=== PATIENT | female | born 1965 | race Caucasian/White ===

== ENCOUNTER 2025-03-08 13:07 | Outpatient (AMB) | payer MEDICARE, MEDICAID, SELFPAY ==
--- NOTE | 2025-03-08 13:09 | MHC.OFFVIS ---
Vital Signs 03/08/25 13:10 Height 5 ft 4 in Weight 216 lb BMI 37.1 BP 124/78 Blood Pressure Location Lt brachial Position Sitting Respiration 16 Pulse 88 Pulse Source Pulse Oximeter Pulse Oximetry (%) 97 Oxygen Delivery Method Nasal Cannula Oxygen Flow Rate 3 Intake Visit Reasons: Chronic pain syndrome Bell Attendant Required: No Allergies Penicillins (PCN) Allergy (Intermediate, Verified 03/08/25 13:12) RASH tetracycline (TETRACYCLINE) Allergy (Intermediate, Verified 03/08/25 13:12) RASH Medication List - Last Reconciled 03/08/25 by Cass Wyatt LPN albuterol sulfate 2.5 mg inhalation Q6H amiodarone 200 mg PO DAILY apixaban 5 mg PO BID atorvastatin (Lipitor) 40 mg PO BEDTIME buprenorphine-naloxone 2-0.5 mg (Suboxone) 1 film buccal DAILY dapagliflozin propanediol 10 mg PO DAILY dupilumab (Dupixent) 300 mg subcut Q2W epinephrine (EpiPen) 0.3 mg IM Q10M PRN fluoxetine 20 mg PO DAILY xhlylnncusg-exulgjrnf-dsufqnab 200-62.5-25 mcg (Trelegy Ellipta) 1 inh inhalation DAILY ipratropium-albuterol 0.5 mg-3 mg(2.5 mg base)/3 mL 3 mL inhalation Q6-8H PRN levalbuterol HCl 0.63 mg inhalation TID metoprolol tartrate 50 mg PO DAILY omeprazole 20 mg PO DAILY pregabalin 100 mg PO BID quetiapine 25 mg PO BEDTIME semaglutide 2 mg subcut QWEEK torsemide 40 mg PO DAILY HPI HPI Chronic pain syndrome: Details: History of Present Illness The patient is a 59-year-old female presenting with chronic pain management and evaluation of medication side effects. She has a history of failback syndrome and chronic pain syndrome, which have been persistent issues. The patient has undergone multiple back surgeries, the most recent being a few months ago, where fractures were treated with plaster and nerve decompression was performed. Despite these interventions, she continues to experience significant pain, described as burning and stabbing in nature, affecting her mobility. The patient has a history of substance use disorder, currently in remission, and is maintained on Suboxone 2/0.5 mg. She reports adverse reactions to Suboxone, including leg swelling and dry heaves, leading her to discontinue the medication after one week. Her medication regimen also includes pregabalin 100 mg twice daily, managed by her primary care provider. The patient has a history of long-term Percocet use, which was discontinued due to diminishing efficacy and misuse concerns. She has been diagnosed with Chronic Obstructive Pulmonary Disease (COPD) and is on supplemental oxygen at 3 liters due to this condition. Additionally, she has a history of congestive heart failure and atrial fibrillation, for which she underwent an ablation procedure in December. Pain Description - Onset: Chronic pain following multiple back surgeries - Quality: Burning and stabbing pain - Location: Back - Exacerbating factors: Mobility and walking - Relieving factors: None effectively identified Physical Exam - Appears afebrile. - Alert and oriented. - Mood and affect appropriate. - Follows and participates in conversation appropriately. - Respiratory effort is unlabored. - Sitting comfortably in wheelchair, with supplemental oxygen. Pain Management - Affect: Pain significantly impacts mobility and daily activities - Analgesia: Currently on pregabalin 100 mg twice daily; Suboxone discontinued due to adverse effects - Adverse Effects: Swelling of legs and dry heaves from Suboxone - Activities of Daily Living: Pain limits walking and mobility - Aberrant Drug Related Behaviors: History of Percocet misuse [facility] Medical History (Updated 02/04/25 @ 10:06 by Cass Wyatt LPN) Type 2 diabetes mellitus Substance abuse Rosacea Right knee DJD Patellofemoral disorder of right knee Paroxysmal atrial fibrillation Osteopenia of femoral neck Osteoarthritis, hand Osteoarthritis of glenohumeral joints, bilateral Obesity with alveolar hypoventilation Migraine Major depressive disorder Lumbar degenerative disc disease superintendent terminal systemic steroid user senior living prescription opiate use Insomnia Hyperlipidemia Generalized anxiety disorder 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 Chronic pain syndrome Chronic hypoxic respiratory failure Chronic antibiotic suppression Central sleep apnea Anticoagulant long-term use Allergic rhinitis Advanced COPD Physical Exam Vital Signs: Last Vital Signs Pulse 88 03/08/25 13:10 Resp 16 03/08/25 13:10 BP 124/78 03/08/25 13:10 Pulse Ox 97 03/08/25 13:10 Oxygen Delivery Method Nasal Cannula 03/08/25 13:10 Oxygen Flow Rate 3 03/08/25 13:10 BMI result Body Mass Index 37.1 Assessment & Plan Assessment & Plan (1) senior living prescription opiate use: Code(s): Z79.891 - senior living (current) use of opiate analgesic Category: Medical (2) Chronic pain syndrome: Code(s): G89.4 - Chronic pain syndrome Category: Medical Plan Patient was informed and verbally consented to the use of an ambient scribe for clinic note documentation during this visit. 1. Failed back Syndrome - Consideration of spinal stimulator as a treatment option, though we are hesitant due to complexity and comorbidities. 2. Chronic Pain Syndrome - Discussion of interventional pain management options, including injections, though patient has had limited success previously. 3. Substance Use Disorder In Remission - Continued monitoring and management with Suboxone, though currently discontinued due to adverse effects. 4. Chronic Obstructive Pulmonary Disease (Copd) - Continued use of supplemental oxygen at 3 liters as needed. 5. Congestive Heart Failure - Monitoring of symptoms and coordination with cardiology for management. Recommended evaluation of LE swelling. 6. Atrial Fibrillation - Post-ablation follow-up and continued anticoagulation therapy with Eliquis. Discussion Notes I discussed with the patient the potential use of a spinal stimulator for her failback syndrome, explaining the risks and benefits, but she expressed hesitation due to her multiple comorbidities. We also reviewed her current pain management regimen, including the adverse effects she experienced with Suboxone, and the possibility of interventional pain management techniques. I advised her to follow up with her knockout machine operator regarding her heart failure and atrial fibrillation management, especially considering her recent ablation. Patient Instructions - Follow up with your knockout machine operator for heart failure and atrial fibrillation management. - Consider visiting the hospital if leg swelling and dry heaves persist. - Discuss with your primary care provider about alternative pain management options. Coding Level of Care Code New Pt Level 4 (78163) Diagnoses superintendent terminal prescription opiate use Z79.891 Chronic pain syndrome G89.4
[2025-03-08 13:10] VITALS: BP 124/78; PULSE 88; RESP 16; O2SAT 97; BMI 37.1
== END 2025-03-08 13:45 | disposition home or self-care (01) ==
LOC: HO.PMC 13:07
PROVIDERS: PCP Nurse Practitioner Family; Visit Provider Internal Medicine
DX: G89.4 Chronic pain syndrome (principal); Z79.891 Long term (current) use of opiate analgesic
CPT/HCPCS: 99204

== ENCOUNTER → 2025-03-08 13:07 | Outpatient (BNVA) | payer MEDICARE, MEDICAID, SELFPAY | PROVIDERS: PCP Nurse Practitioner Family; Visit Provider Internal Medicine | DX: G89.4 Chronic pain syndrome (principal); J44.9 Chronic obstructive pulmonary disease, unspecified; Z99.81 Dependence on supplemental oxygen; I50.9 Heart failure, unspecified; I48.0 Paroxysmal atrial fibrillation; F19.11 Other psychoactive substance abuse, in remission; Z79.01 Long term (current) use of anticoagulants; Z98.890 Other specified postprocedural states; Z79.891 Long term (current) use of opiate analgesic | CPT/HCPCS: 99202 ==